=== PATIENT | male | born 1965 | race Caucasian/White ===

== ENCOUNTER 2017-05-21 14:37 | Emergency (ER) | payer OTHER ==
[2017-05-21] MEDS: MUPIROCIN 2% 22 GM OINT TOP (17:57)
== END 2017-05-21 18:17 | disposition home or self-care (01) ==
LOC: E/R 14:37
DX: G89.18 Other acute postprocedural pain (principal); I10 Essential (primary) hypertension; E11.9 Type 2 diabetes mellitus without complications; E66.9 Obesity, unspecified; Z76.0 Encounter for issue of repeat prescription
CPT/HCPCS: 99284; Z7502